=== PATIENT | male | born 1995 | race Asian ===

== ENCOUNTER 2017-02-14 08:22 | Emergency (ER) | payer OTHER ==
[2017-02-14] MEDS ORDERED: Ketorolac INJ* 30 MG/ML 1 ML VIAL IV PUSH ONE (08:43)
--- NOTE | 2017-02-14 08:44 | ED ---
HPI Chest Pain - HPI Summary HPI Summary: 21M presents with chest pain today. He describes is as a pressure and is 6/10. He states the pain is all over her chest. It is worst with laying down and with deep breathing. He also admits to sore throat, headache, and nasal congestion. He states he has felt this pain before but never this intense. He denies any SOB or cough. He denies any abdominal pain or acid reflux. He also admits to muscle aches. He denies any fever. He denies any PMH of heart problems, HTN or DM. He has no family history of heart disease. He went to [facility] yesterday. He denies any recent surgeries or history of DVT/PE. - History of Current Complaint Chief Complaint: EDGeneral Time Seen by Provider: 02/14/17 08:32 Pain Intensity: 3 - Allergy/Home Medications Allergies/Adverse Reactions: Allergies Allergy/AdvReac Type Severity Reaction Status Date / Time No Known Allergies Allergy Verified 02/14/17 09:07 PMH/Surg Hx/FS Hx/Imm Hx Endocrine/Hematology History: Denies: Hx Anticoagulant Therapy Respiratory History: Denies: Hx Asthma Infectious Disease History: No Infectious Disease History: Denies: Traveled Outside the in Last 30 Days - Family History Known Family History: Negative: Cardiac Disease - Social History Occupation: Student Alcohol Use: None Substance Use Type: Reports: None Smoking Status (MU): Never Smoked Tobacco Review of Systems Negative: Fever Positive: Sore Throat, Nasal Discharge Positive: Chest Pain Negative: Shortness Of Breath, Cough Negative: Abdominal Pain Positive: Headache All Other Systems Reviewed And Are Negative: Yes Physical Exam Triage Information Reviewed: Yes Vital Signs On Initial Exam: Initial Vitals Temp Pulse Resp BP Pulse Ox 97.2 F 88 16 119/59 98 02/14/17 08:24 02/14/17 08:24 02/14/17 08:24 02/14/17 08:24 02/14/17 08:24 Vital Signs Reviewed: Yes Appearance: Positive: Well-Appearing Skin: Positive: Warm, Dry Head/Face: Positive: Normal Head/Face Inspection Eyes: Positive: Normal, Conjunctiva Clear ENT: Positive: Pharynx normal, Nasal congestion, TMs normal. Negative: Tonsillar swelling, Tonsillar exudate Respiratory/Lung Sounds: Positive: Clear to Auscultation, Breath Sounds Present , Other - reproducible tender to chest wall Cardiovascular: Positive: Normal, RRR. Negative: Murmur, Rub Diagnostics - Vital Signs Vital Signs Temp Pulse Resp BP Pulse Ox 02/14/17 08:24 97.2 F 88 16 119/59 98 - Laboratory Result Diagrams: 02/14/17 09:45 02/14/17 09:45 Lab Statement: Any lab studies that have been ordered have been reviewed, and results considered in the medical decision making process. - Radiology chest Xray Interpretation: No Acute Changes Radiology Interpretation Completed By: Radiologist - EKG No standard instances Cardiac Rate: NL EKG Rhythm: Sinus Rhythm ST Segment: Normal Re-Evaluation - Re-Evaluation First Eval Re-Evaluation Time: 11:04 Change: Improved Comment: pain is gone Chest Pain Course/Dx - Course Course Of Treatment: 21M presents with chest pain since this morning. He has had this pain before but never this intense. He also admits to sinus congestion , sore throat, and body aches. He denies any cough, SOB, or fever. states pain is worst when laying down. is pressure like in nature. on exam has sinus congestion. normal throat. chest wall tenderness. no murmur heard on exam. EKG normal. no ST elevation. chest xray normal. afebrile. Labs: d-dimer normal, troponin normal, CRP 25, wbc normal. do not suspect pericarditis due to no friction rub, afebrile, EKG normal. suspect likely viral illness with costrochonditris. after todarol patient pain resolved. will treat with NSAIDS and symptomatic relief. patient understands and agrees with plan - Chest Pain Differential Diagnosis/HQI/PQRI: Chest Wall, Lower Respiratory Infection, Pulmonary Embolism, Other: - pericarditis - Diagnoses Provider Diagnoses: Chest pain, Upper respiratory infection Discharge - Discharge Plan Condition: Good Disposition: HOME Prescriptions: Ibuprofen TAB* [Motrin TAB* 600 MG] 600 mg PO Q6H PRN #20 tab PRN Reason: Pain Patient Education Materials: Chest Wall Pain (ED) Referrals: [facility] [Primary Care Provider] - Additional Instructions: Take ibuprofen every 6 hours for pain Use saline in the nose for nasal congestion, can also get Sudafed at pharmacy counter for nasal congestion Return to ED if develop any new or worsening symptoms
--- NOTE | 2017-02-14 09:56 | RAD ---
HISTORY: Chest pain COMPARISONS: None VIEWS: 2: Frontal dual-energy and lateral views of the chest. FINDINGS: CARDIOMEDIASTINAL SILHOUETTE: The cardiomediastinal silhouette is normal. EVIE: The evie are normal. PLEURA: The costophrenic angles are sharp. No pleural abnormalities are noted. LUNG PARENCHYMA: The lungs are clear. ABDOMEN: The upper abdomen is clear. There is no subphrenic gas. BONES AND SOFT TISSUES: No bone or soft tissue abnormalities are noted. OTHER: None. IMPRESSION: NO ACTIVE CARDIOPULMONARY DISEASE.
[2017-02-14 10:13] LABS: Albumin 4.7 g/dL (3.2-5.2); BUN/Creatinine Ratio 12.5 (8-20); Calcium 9.4 mg/dL (8.6-10.3); EGFR African American 143.5 (>60); EGFR Non-African American 111.6 (>60); Total Protein 8.1 g/dL (6.4-8.9)
[2017-02-14 10:14] LABS: Globulin 3.4 g/dL (2-4); Total Bilirubin 0.9 mg/dL (0.2-1.0)
[2017-02-14 10:16] LABS: Troponin I 0.01 ng/mL (<0.04)
[2017-02-14 11:09] LABS: Hematocrit 50 % (42-52); Mean Corpuscular HGB Conc 34 g/dl (31-36); Mean Corpuscular Hemoglobin 28 pg (27-31); Mean Corpuscular Volume 81 fL (80-94); Mean Platelet Volume 8 um3 (7.4-10.4); Red Blood Count 6.15 10^6/ul (4.0-5.4); Red Cell Distribution Width 13 % (10.5-15); White Blood Count 7.9 10^3/ul (3.5-10.8)
[2017-02-14 13:47] LABS: Erythrocyte Sed Rate 14 mm/Hr (0-14)
== END 2017-02-14 11:59 | disposition home or self-care (01) ==
LOC: ED 08:22
DX: J06.9 Acute upper respiratory infection, unspecified (principal); R07.9 Chest pain, unspecified; J02.9 Acute pharyngitis, unspecified
CPT/HCPCS: 36415; 71020; 80053; 84484; 85025; 85379; 85652; 86141; 87502; 93005; 96374; 99283; J1885